=== PATIENT | female | born 1970 | race Caucasian/White ===

== ENCOUNTER 2017-03-24 11:45 | Inpatient (IN) | payer OTHER ==
[~2017-03-24] VITALS: Ht 172.7 cm; Wt 148.0 kg
[~2017-03-24 11:45] MED LIST: Motrin PO; Percocet 5/325,Endoc PO
[2017-03-24 12:34] LABS: HEMATOCRIT 39.4 % (36.0-46.0); MCHC 31.5 G/DL (30.0-36.0); MCV 95.4 FL (83-99); MEAN PLAT.VOLUME 10.8 uM^3 (9.5-12.4); PLATELET COUNT 228 K/uL (156-360); RBC DIS.WIDTH-CV 17.8 % (11.8-14.6); RBC DIS.WIDTH-SD 61.6 % (39-53); RED BLOOD COUNT 4.13 M/uL (3.80-5.20)
[2017-03-24 12:46] LABS: CHLORIDE 112 mEq/L (99-109); POTASSIUM 3.7 mEq/L (3.7-5.4); SODIUM 144 mEq/L (136-147)
[2017-03-24 12:47] LABS: GLUCOSE 101 mg/dL (70-99)
[2017-03-24 12:49] LABS: ANION GAP 13 MEQ/L (2-14)
[2017-03-24 12:51] LABS: GFR ESTIMATE (CALCULATED) > 59 mL/min/
[2017-03-24 12:52] LABS: UREA NITROGEN (BUN) 12 mg/dL (9-23)
[2017-03-24 12:55] LABS: TROP-I INTERPRETATION NEGATIVE; TROPONIN-I 0.02 ng/mL (0.0-0.30)
[2017-03-24 13:32] LABS: INTER. NORMALIZED RATIO 1.2; PROTHROMBIN TIME 13.5 SEC (10.2-12.9)
[2017-03-24 13:34] LABS: MAGNESIUM 2.1 mg/dL (1.3-2.7)
[2017-03-24 13:35] LABS: PTT 28.9 SEC (25-37)
[2017-03-24] MEDS ORDERED: VYVANSE30 MG PO (15:45)
[2017-03-24] MEDS ORDERED: LEXAPRO10 MG PO (15:46)
[2017-03-24] MEDS ORDERED: AMOXICILLIN875 MG PO (15:47)
[2017-03-24] MEDS ORDERED: WOMEN'S DAILY1 EACH PO (15:48)
[2017-03-24] MEDS ORDERED: GLYCOTROL CAPS1 EACH PO (15:49)
[2017-03-24 17:01] VITALS: BP 142/75
[2017-03-24 18:40] VITALS: BP 133/90
[2017-03-24 19:32] LABS: TROP-I INTERPRETATION NEGATIVE; TROPONIN-I 0.02 ng/mL (0.0-0.30)
[2017-03-24 23:08] VITALS: BP 124/70
[2017-03-25 01:03] LABS: TROP-I INTERPRETATION NEGATIVE; TROPONIN-I < 0.01 ng/mL (0.0-0.30)
[2017-03-25 04:22] VITALS: BP 101/69; BP 91/50
[2017-03-25 06:03] LABS: ANION GAP 11 MEQ/L (2-14); CHLORIDE 110 MEQ/L (99-109); GFR ESTIMATE (CALCULATED) > 59 mL/min/; GLUCOSE 141 mg/dL (70-99); SAMPLE HEMOLYSIS CHECK 0; SAMPLE ICTERIC CHECK 0; SAMPLE LIPEMIA CHECK 0; SODIUM 143 MEQ/L (136-147); UREA NITROGEN (BUN) 13 mg/dL (9-23)
[2017-03-25 06:18] LABS: POTASSIUM 4.7 MEQ/L (3.7-5.4)
[2017-03-25 06:38] VITALS: BP 123/89
[2017-03-25 11:55] VITALS: BP 131/92
[2017-03-25 16:25] VITALS: BP 141/67
[2017-03-25 20:05] VITALS: BP 114/70
[2017-03-25 23:39] VITALS: BP 108/69
[2017-03-26 03:30] VITALS: BP 113/75
[2017-03-26 06:54] LABS: Estimated Average Glucose 128 mg/dL (70-123); HEMOGLOBIN A1c (GLYCOHEMOGLOB) 6.1 % HGB (Below 5.7)
[2017-03-26 08:29] VITALS: BP 139/89
[2017-03-26 12:15] VITALS: BP 144/77
[2017-03-26 15:33] VITALS: BP 134/72
[2017-03-26 20:00] VITALS: BP 109/85
[2017-03-26 23:58] VITALS: BP 92/68
[2017-03-27 03:47] VITALS: BP 111/60
[2017-03-27 06:21] LABS: ANION GAP 10 MEQ/L (2-14); CHLORIDE 103 MEQ/L (99-109); GFR ESTIMATE (CALCULATED) > 59 mL/min/; SAMPLE HEMOLYSIS CHECK 0; SAMPLE ICTERIC CHECK 0; SAMPLE LIPEMIA CHECK 0; SODIUM 142 MEQ/L (136-147)
[2017-03-27 06:25] LABS: GLUCOSE 87 mg/dL (70-99); UREA NITROGEN (BUN) 24 mg/dL (9-23)
[2017-03-27 08:00] VITALS: BP 112/83
[2017-03-27 11:41] VITALS: BP 105/62
[2017-03-27 13:03] LABS: POINT-OF-CARE METER ID UU13113831
[2017-03-27 16:35] VITALS: BP 126/75
[2017-03-27 19:34] VITALS: BP 131/59
[2017-03-27 23:57] VITALS: BP 129/53
[2017-03-28 03:23] VITALS: BP 102/64
[2017-03-28 06:03] LABS: ANION GAP 13 MEQ/L (2-14); CHLORIDE 99 MEQ/L (99-109); GFR ESTIMATE (CALCULATED) > 59 mL/min/; GLUCOSE 97 mg/dL (70-99); POTASSIUM 3.8 MEQ/L (3.7-5.4); SAMPLE HEMOLYSIS CHECK 0; SAMPLE ICTERIC CHECK 0; SAMPLE LIPEMIA CHECK 0; SODIUM 141 MEQ/L (136-147); UREA NITROGEN (BUN) 29 mg/dL (9-23)
[2017-03-28 06:32] VITALS: BP 93/59
[2017-03-28 13:29] VITALS: BP 105/71
[2017-03-28 16:19] VITALS: BP 100/64
[2017-03-28 21:00] VITALS: BP 99/64
[2017-03-28 23:46] VITALS: BP 93/57
[2017-03-29 03:44] VITALS: BP 121/74
[2017-03-29 05:07] LABS: CHLORIDE 101 mEq/L (99-109); POTASSIUM 4.3 mEq/L (3.7-5.4); SODIUM 135 mEq/L (136-147)
[2017-03-29 05:09] LABS: GLUCOSE 104 mg/dL (70-99)
[2017-03-29 05:10] LABS: ANION GAP 9 MEQ/L (2-14)
[2017-03-29 05:13] LABS: GFR ESTIMATE (CALCULATED) > 59 mL/min/
[2017-03-29 05:14] LABS: UREA NITROGEN (BUN) 25 mg/dL (9-23)
[2017-03-29 06:53] VITALS: BP 99/64
[2017-03-29 15:30] VITALS: BP 105/87
[2017-03-29 21:18] VITALS: BP 82/62
[2017-03-29 23:06] VITALS: BP 92/62
[2017-03-30] VITALS (7 sets, daily range): BP systolic 82–128; BP diastolic 56–81
[2017-03-30 00:11] LABS: TROP-I INTERPRETATION NEGATIVE; TROPONIN-I 0.01 ng/mL (0.0-0.30)
[2017-03-30 04:48] LABS: CHLORIDE 100 mEq/L (99-109); POTASSIUM 3.8 mEq/L (3.7-5.4); SODIUM 136 mEq/L (136-147)
[2017-03-30 04:50] LABS: GLUCOSE 109 mg/dL (70-99)
[2017-03-30 04:51] LABS: ANION GAP 10 MEQ/L (2-14)
[2017-03-30 04:53] LABS: GFR ESTIMATE (CALCULATED) > 59 mL/min/
[2017-03-30 04:54] LABS: UREA NITROGEN (BUN) 18 mg/dL (9-23)
[2017-03-30 04:56] LABS: TROP-I INTERPRETATION NEGATIVE; TROPONIN-I < 0.01 ng/mL (0.0-0.30)
[2017-03-30 13:14] LABS: Flow Number of Markers 22 (()); Flow Spec Viability 86 % (()); Flow Specimen Type LYMPH NODE (())
[2017-03-31 04:12] VITALS: BP 91/55
[2017-03-31 07:19] VITALS: BP 114/69
[2017-03-31 11:12] VITALS: BP 116/75
[2017-03-31 11:15] VITALS: BP 116/68
[2017-03-31] MEDS ORDERED: FUROSEMIDE20 MG PO (11:51)
[2017-03-31] MEDS ORDERED: TYLENOL REGULA325 MG PO (11:51)
[2017-03-31] MEDS ORDERED: CARVEDILOL6.25 MG PO (11:51)
[2017-03-31] MEDS ORDERED: NICOTINE PATCH1 EAC2 TD (11:51)
== END 2017-03-31 14:49 | disposition home or self-care (01) | DRG 264 ==
LOC: EME 11:45 → RME 11:45 → EDOF 15:40 → 5WEST 15:40 → EDOF 15:40 → ENRESERV 15:51 → 5WEST 16:50 → ENRESERV 03-31 00:21 → CANRESERV 03-31 00:21 → 5WEST 03-31 14:49
PROVIDERS: Internal Medicine; Internal Medicine Cardiovascular Disease; Physician Assistant; Physician Assistant Medical
PROC: 07B74ZX Excision of Thorax Lymphatic, Percutaneous Endoscopic Approach, Diagnostic (ICD-10-PCS; principal; 2017-03-28)
DX: I11.0 Hypertensive heart disease with heart failure (principal); I50.21 Acute systolic (congestive) heart failure; I42.0 Dilated cardiomyopathy; R59.0 Localized enlarged lymph nodes; I27.20 Pulmonary hypertension, unspecified; D86.9 Sarcoidosis, unspecified; F17.210 Nicotine dependence, cigarettes, uncomplicated; G47.33 Obstructive sleep apnea (adult) (pediatric); I08.1 Rheumatic disorders of both mitral and tricuspid valves; I45.10 Unspecified right bundle-branch block; I48.91 Unspecified atrial fibrillation; I49.1 Atrial premature depolarization; J20.9 Acute bronchitis, unspecified; J98.11 Atelectasis; F32.9 Major depressive disorder, single episode, unspecified; F41.9 Anxiety disorder, unspecified; I95.9 Hypotension, unspecified; T50.1X5A Adverse effect of loop [high-ceiling] diuretics, initial encounter; T44.7X5A Adverse effect of beta-adrenoreceptor antagonists, initial encounter; T46.4X5A Adverse effect of angiotensin-converting-enzyme inhibitors, initial encounter; E66.01 Morbid (severe) obesity due to excess calories; Z88.0 Allergy status to penicillin; Z68.42 Body mass index [BMI] 45.0-49.9, adult
CPT/HCPCS: 71020; 71275; 80048; 82948; 83036; 83735; 83880; 84484; 85027; 85610; 85730; 88185 90; 88305; 93005; 93306; 94640; 94640 76; 94799; 99202; 99281; 99285; G0378; J1644; J1650; J1940; J2250; J2405; J2765; J2930; J3010; J7040; J7050

== ENCOUNTER 2017-05-31 10:09 | Day surgery (SDC) | payer OTHER ==
[~2017-05-31] VITALS: Ht 172.7 cm; Wt 131.5 kg
[~2017-05-31 10:09] MED LIST changes: +AMOXICILLIN875 MG PO; +CARVEDILOL6.25 MG PO; +FUROSEMIDE20 MG PO; +GLYCOTROL CAPS1 EACH PO; +LEXAPRO10 MG PO; +NICOTINE PATCH1 EAC2 TD; +TYLENOL REGULA325 MG PO; +VYVANSE30 MG PO; +WOMEN'S DAILY1 EACH PO
== END 2017-05-31 18:30 | disposition home or self-care (01) ==
LOC: CATH 10:09
DX: I25.10 Atherosclerotic heart disease of native coronary artery without angina pectoris (principal); I42.9 Cardiomyopathy, unspecified; I27.20 Pulmonary hypertension, unspecified; E66.01 Morbid (severe) obesity due to excess calories; Z68.41 Body mass index [BMI] 40.0-44.9, adult; G47.30 Sleep apnea, unspecified; F17.200 Nicotine dependence, unspecified, uncomplicated
CPT/HCPCS: C1769; C1887; J1644; J2250; J3010; J7040

== ENCOUNTER 2017-11-06 14:26 | Emergency (ER) | payer OTHER ==
[~2017-11-06] VITALS: Ht 172.7 cm; Wt 141.9 kg
[2017-11-06 19:57] VITALS: BP 132/70
== END 2017-11-06 20:17 | disposition home or self-care (01) ==
LOC: EME 14:26 → EXP 14:26
DX: S00.83XA Contusion of other part of head, initial encounter (principal); Y04.0XXA Assault by unarmed brawl or fight, initial encounter; F32.9 Major depressive disorder, single episode, unspecified; F41.9 Anxiety disorder, unspecified; Z88.0 Allergy status to penicillin; F17.200 Nicotine dependence, unspecified, uncomplicated
CPT/HCPCS: 70160; 70486; 99281; 99284